=== PATIENT | male | born 1990 | race African-American/Black ===

== ENCOUNTER 2017-06-12 19:00 | Emergency (ER) | payer SELFPAY ==
[~2017-06-12] VITALS: Ht 182.9 cm; Wt 84.0 kg
[2017-06-12 19:28] VITALS: BP 109/63
== END 2017-06-13 03:11 | disposition left against medical advice (07) ==
LOC: ER 19:00
DX: R10.10 Upper abdominal pain, unspecified (principal); R11.10 Vomiting, unspecified; R19.7 Diarrhea, unspecified; Z53.21 Procedure and treatment not carried out due to patient leaving prior to being seen by health care provider